=== PATIENT | male | born 1970 | race Caucasian/White ===

== ENCOUNTER → 2018-12-14 | Outpatient (CLI) | payer OTHER | END | disposition home or self-care (01) | LOC: LAB 19:00 → LAB SHORT 19:00 | DX: L08.9 Local infection of the skin and subcutaneous tissue, unspecified (principal) | CPT/HCPCS: 87070; 87077; 87147; 87186; 87205 ==

== ENCOUNTER 2018-12-17 08:00 | Day surgery (SDC) | payer OTHER | END 2018-12-17 23:02 | disposition home or self-care (01) | LOC: WOUND 08:00 | DX: S91.302A Unspecified open wound, left foot, initial encounter (principal); L03.818 Cellulitis of other sites; B95.61 Methicillin susceptible Staphylococcus aureus infection as the cause of diseases classified elsewhere; M79.672 Pain in left foot; L02.416 Cutaneous abscess of left lower limb; I10 Essential (primary) hypertension; F17.200 Nicotine dependence, unspecified, uncomplicated; M10.9 Gout, unspecified | CPT/HCPCS: 87070; 87075; 87077; 87147; 87186; 87205; G0463 ==

== ENCOUNTER 2018-12-23 09:45 | Day surgery (SDC) | payer OTHER | END 2018-12-23 22:46 | disposition home or self-care (01) | LOC: WOUND 09:45 | PROC: 0H9NXZZ Drainage of Left Foot Skin, External Approach (ICD-10-PCS; principal; 2018-12-23) | DX: L97.529 Non-pressure chronic ulcer of other part of left foot with unspecified severity (principal); L03.818 Cellulitis of other sites; M79.672 Pain in left foot; I10 Essential (primary) hypertension; E78.5 Hyperlipidemia, unspecified; M10.9 Gout, unspecified | CPT/HCPCS: 87070; 87075; 87205 ==

== ENCOUNTER 2018-12-30 00:19 | Day surgery (SDC) | payer OTHER | END 2018-12-30 22:44 | disposition home or self-care (01) | LOC: WOUND 00:19 | DX: S91.302A Unspecified open wound, left foot, initial encounter (principal); L03.818 Cellulitis of other sites; M79.672 Pain in left foot; L02.416 Cutaneous abscess of left lower limb; M10.9 Gout, unspecified; I10 Essential (primary) hypertension; E78.5 Hyperlipidemia, unspecified; B95.61 Methicillin susceptible Staphylococcus aureus infection as the cause of diseases classified elsewhere ==

== ENCOUNTER 2021-10-24 15:06 | Emergency (ER) | payer OTHER ==
[~2021-10-24] VITALS: Ht 172.7 cm; Wt 122.5 kg
[2021-10-24] MEDS ORDERED: ONDA4ODT MM (17:27)
[2021-10-24] MEDS ORDERED: Norco 5-325 Ta1 EACH PO (17:27)
[2021-10-25] MEDS ORDERED: ROSUVASTATIN CA20 MG PO (20:11)
[2021-10-25] MEDS ORDERED: ALLO300 PO (20:12)
[2021-10-25] MEDS ORDERED: LISINOPRIL 20 MG (20:12)
[2021-10-25] MEDS ORDERED: FEBUXOSTAT40 MG PO (20:13)
[2021-10-25] MEDS ORDERED: METO50ER PO (20:13)
[2021-10-25] MEDS ORDERED: ONDA4ODT (20:14)
[2021-10-25] MEDS ORDERED: PROBENECID-COL1 EACH PO (20:14)
[2021-10-25] MEDS ORDERED: HYDROCODONE-AC1 EA15 PO (20:14)
[2021-10-25] MEDS ORDERED: PLAVIX75 MG PO (20:14)
[2021-10-25] MEDS ORDERED: LISI20 PO (20:15)
== END 2021-10-24 17:48 | disposition home or self-care (01) ==
LOC: ER 15:06
DX: M10.9 Gout, unspecified (principal)
CPT/HCPCS: 36415; 73610; 96374; 99283-25; A9270; J3010; J7030

== ENCOUNTER → 2021-10-25 | Outpatient (CLI) | payer OTHER ==
[~2021-10-25] MED LIST: ALLO300 PO; FEBUXOSTAT40 MG PO; HYDROCODONE-AC1 EA15 PO; LISI20 PO; LISINOPRIL 20 MG; METO50ER PO; Norco 5-325 Ta1 EACH PO; ONDA4ODT; ONDA4ODT MM; PLAVIX75 MG PO; PROBENECID-COL1 EACH PO; ROSUVASTATIN CA20 MG PO
[2021-10-25 17:39] LABS: BASOPHILS ABSOLUTE AUTO 0.08 K/mm3 (0.00-0.23); BASOPHILS PERCENT AUTO 0 % (0-2); EOSINOPHILS ABSOLUTE AUTO 0.01 K/mm3 (0.00-0.68); EOSINOPHILS PERCENT AUTO 0 % (0-6); Hematocrit 45.4 % (37.0-53.0); Hemoglobin 15.1 g/dL (13.5-17.5); IMMATURE GRAN ABSOLUTE AUTO 0.63 K/mm3 (0.00-0.10); IMMATURE GRAN PERCENT AUTO 2 % (0-1); LYMPHOCYTES ABSOLUTE AUTO 1.75 K/mm3 (0.84-5.20); LYMPHOCYTES PERCENT AUTO 6 % (21-46); MONOCYTES ABSOLUTE AUTO 1.07 K/mm3 (0.16-1.47); MONOCYTES PERCENT AUTO 4 % (4-13); Mean Corpuscular HGB 30.1 pg (26.0-34.0); Mean Corpuscular HGB Conc 33.3 g/dL (31.5-36.5); Mean Corpuscular Volume 90 fL (80-100); Mean Platelet Volume 10.9 fL (9.1-12.4); NEUTROPHILS ABSOLUTE AUTO 23.75 K/mm3 (1.96-9.15); NEUTROPHILS PERCENT AUTO 87 % (41-73); Platelet Count 663 K/mm3 (150-400); RDW Coefficient Variation 14.8 % (11.7-14.2); RDW Standard Deviation 49.1 fL (35.1-46.3); Red Blood Cell Count 5.02 M/mm3 (4.30-5.90); White Blood Cell Count 27.29 K/mm3 (4.00-11.30)
[2021-10-25 17:53] LABS: Alanine Aminotransfer (ALT/SGP 138 U/L (12-78); Albumin, Blood 2.1 g/dL (3.4-5.0); Albumin/Globulin Ratio 0.3 (0.8-1.8); Alk Phos 126 U/L (50-136); Anion Gap 11 mmol/L (6-16); Aspartate Aminotrans (AST/SGOT 44 U/L (12-37); Bilirubin, Direct 0.3 mg/dL (0.0-0.3); Bilirubin, Indirect 0.4 mg/dL (0.1-0.7); Bilirubin, Total 0.7 mg/dL (0.1-1.0); Blood Urea Nitrogen 34 mg/dL (8-24); Bun/Creatinine Ratio 39.3 (12.0-20.0); CO2, Blood 17 mmol/L (21-32); Calcium, Blood 9.2 mg/dL (8.5-10.1); Chloride, Blood 104 mmol/L (98-108); Creatinine, Blood 0.87 mg/dL (0.60-1.20); Globulin, Blood 6.7 g/dL (2.2-4.0); Glomerular Filtration Rate >60 (60-); Glucose, Blood 178 mg/dL (70-99); Phosphorus, Blood 4.4 mg/dL (2.5-4.9); Potassium, Blood 4.9 mmol/L (3.5-5.5); Sodium, Blood 132 mmol/L (136-145); Total Protein, Blood 8.8 g/dL (6.4-8.2)
[2021-10-25 20:51] LABS: Percent Saturation 15.7 % (20.0-50.0)
[2021-10-28 14:07] LABS: G-6-PD, QUANT 403 (127-427); RBC 4.96 x10E6/uL (4.14-5.80)
== END | disposition home or self-care (01) ==
LOC: LAB SHORT 15:55 → LAB 15:55
PROVIDERS: Internal Medicine Nephrology
DX: N18.30 Chronic kidney disease, stage 3 unspecified (principal); D63.1 Anemia in chronic kidney disease; N25.81 Secondary hyperparathyroidism of renal origin; E55.9 Vitamin D deficiency, unspecified; E78.00 Pure hypercholesterolemia, unspecified; R76.9 Abnormal immunological finding in serum, unspecified; R94.5 Abnormal results of liver function studies; G60.9 Hereditary and idiopathic neuropathy, unspecified
CPT/HCPCS: 80053; 82248; 82306; 82607; 82728; 82746; 82955; 83540; 83550; 83970; 84100; 85018; 85025

== ENCOUNTER 2021-12-05 09:51 | Emergency (ER) | payer OTHER ==
[~2021-12-05] VITALS: Ht 180.3 cm; Wt 111.1 kg
[~2021-12-05 09:51] MED LIST changes: +AMLO5 PO; +ARTIFICIAL TEAR15 M2 BOTHEYES; +ATOR40TA PO; +Acetaminophen650 M1 PO; +BENADRYL25 MG PO; +CEFTRIAXONE2 G1 IV; +CLOP75 PO; +COLCRYS0.6 M1 PO; +FAMO20 PO; +FEBU40TA PO; +GENT.3OPSO BOTHEYES; +MELA3 PO; +OXYC5 PO; +PANT20 PO; +PRED20 PO; +PROBIOTIC1 EA13 PO; +RIFA300 PO; +SIME80CH PO; +Vitamin D1000 UNI1 PO; +ZYRTEC10 M2 PO
[2021-12-05] MEDS ORDERED: ALLO300 PO (10:25)
[2021-12-05 10:49] LABS: BASOPHILS ABSOLUTE AUTO 0.05 K/mm3 (0.00-0.23); BASOPHILS PERCENT AUTO 0 % (0-2); EOSINOPHILS ABSOLUTE AUTO 0.09 K/mm3 (0.00-0.68); EOSINOPHILS PERCENT AUTO 1 % (0-6); Hematocrit 34.2 % (37.0-53.0); Hemoglobin 11.1 g/dL (13.5-17.5); IMMATURE GRAN PERCENT AUTO 1 % (0-1); LYMPHOCYTES PERCENT AUTO 14 % (21-46); MONOCYTES ABSOLUTE AUTO 1.09 K/mm3 (0.16-1.47); MONOCYTES PERCENT AUTO 8 % (4-13); Mean Corpuscular HGB 29.6 pg (26.0-34.0); Mean Corpuscular HGB Conc 32.5 g/dL (31.5-36.5); Mean Corpuscular Volume 91 fL (80-100); Mean Platelet Volume 11.1 fL (9.1-12.4); NEUTROPHILS ABSOLUTE AUTO 10.75 K/mm3 (1.96-9.15); NEUTROPHILS PERCENT AUTO 76 % (41-73); Platelet Count 433 K/mm3 (150-400); RDW Coefficient Variation 14.2 % (11.7-14.2); RDW Standard Deviation 46.7 fL (35.1-46.3); Red Blood Cell Count 3.75 M/mm3 (4.30-5.90); White Blood Cell Count 14.08 K/mm3 (4.00-11.30)
[2021-12-05 11:01] LABS: Alanine Aminotransfer (ALT/SGP 70 U/L (12-78); Albumin, Blood 2.7 g/dL (3.4-5.0); Albumin/Globulin Ratio 0.6 (0.8-1.8); Alk Phos 76 U/L (50-136); Anion Gap 10 mmol/L (6-16); Aspartate Aminotrans (AST/SGOT 53 U/L (12-37); Bilirubin, Total 0.2 mg/dL (0.1-1.0); Blood Urea Nitrogen 24 mg/dL (8-24); Bun/Creatinine Ratio 23.3 (12.0-20.0); CO2, Blood 23 mmol/L (21-32); Calcium, Blood 9.1 mg/dL (8.5-10.1); Chloride, Blood 104 mmol/L (98-108); Creatinine, Blood 1.03 mg/dL (0.60-1.20); Globulin, Blood 4.9 g/dL (2.2-4.0); Glomerular Filtration Rate >60 (60-); Glucose, Blood 156 mg/dL (70-99); Potassium, Blood 4.6 mmol/L (3.5-5.5); Sodium, Blood 137 mmol/L (136-145); Total Protein, Blood 7.6 g/dL (6.4-8.2)
== END 2021-12-05 14:45 | disposition home or self-care (01) ==
LOC: ER 09:51
PROVIDERS: Physician Assistant
DX: R04.0 Epistaxis (principal); I10 Essential (primary) hypertension; E78.5 Hyperlipidemia, unspecified; Z79.899 Other long term (current) drug therapy
CPT/HCPCS: 30905; 80053; 85025; 96374-59; 96376-59; 99284-25; A9270; J2405; J7030

== ENCOUNTER 2022-11-29 08:43 | Inpatient (IN) | payer OTHER ==
[~2022-11-29] VITALS: Ht 180.3 cm; Wt 108.4 kg
[~2022-11-29 08:43] MED LIST changes: +METO25ER PO
[2022-11-29 09:35] LABS: White Blood Cell Count 11.11 K/mm3 (4.00-11.30)
[2022-11-29 09:36] LABS: BASOPHILS ABSOLUTE AUTO 0.04 K/mm3 (0.00-0.23); BASOPHILS PERCENT AUTO 0 % (0-2); EOSINOPHILS ABSOLUTE AUTO 0.04 K/mm3 (0.00-0.68); EOSINOPHILS PERCENT AUTO 0 % (0-6); Hematocrit 33.1 % (37.0-53.0); Hemoglobin 9.8 g/dL (13.5-17.5); IMMATURE GRAN ABSOLUTE AUTO 0.06 K/mm3 (0.00-0.10); IMMATURE GRAN PERCENT AUTO 1 % (0-1); LYMPHOCYTES ABSOLUTE AUTO 1.06 K/mm3 (0.84-5.20); LYMPHOCYTES PERCENT AUTO 10 % (21-46); MONOCYTES ABSOLUTE AUTO 1.16 K/mm3 (0.16-1.47); MONOCYTES PERCENT AUTO 10 % (4-13); Mean Corpuscular HGB 24.9 pg (26.0-34.0); Mean Corpuscular HGB Conc 29.6 g/dL (31.5-36.5); Mean Corpuscular Volume 84 fL (80-100); Mean Platelet Volume 11.9 fL (9.1-12.4); NEUTROPHILS ABSOLUTE AUTO 8.75 K/mm3 (1.96-9.15); NEUTROPHILS PERCENT AUTO 79 % (41-73); Platelet Count 392 K/mm3 (150-400); RDW Coefficient Variation 17.6 % (11.7-14.2); RDW Standard Deviation 53.1 fL (35.1-46.3); Red Blood Cell Count 3.94 M/mm3 (4.30-5.90)
[2022-11-29 10:05] LABS: Albumin, Blood 3.3 g/dL (3.4-5.0); Albumin/Globulin Ratio 0.8 (0.8-1.8); Bilirubin, Total 1.8 mg/dL (0.1-1.0); Bun/Creatinine Ratio 24.4 (12.0-20.0); Calcium, Blood 8.4 mg/dL (8.5-10.1); Creatinine, Blood 1.31 mg/dL (0.60-1.20); Globulin, Blood 4.2 g/dL (2.2-4.0); Potassium, Blood 4.3 mmol/L (3.5-5.5); Total Protein, Blood 7.5 g/dL (6.4-8.2)
[2022-11-29 10:16] LABS: Influenza A, PCR NEGATIVE (NEGATIVE); Influenza B, PCR NEGATIVE (NEGATIVE); Resp Syncytial Virus, PCR NEGATIVE (NEGATIVE); SARS-Cov-2 (COVID-19) PCR, MMC NEGATIVE (NEGATIVE)
[2022-11-29] MEDS ORDERED: SPIRONOLACTONE25 MG PO (13:52)
[2022-11-29] MEDS ORDERED: LANSOPRAZOLE30 MG PO (13:54)
[2022-11-30 04:43] LABS: BASOPHILS ABSOLUTE AUTO 0.06 K/mm3 (0.00-0.23); BASOPHILS PERCENT AUTO 0 % (0-2); EOSINOPHILS ABSOLUTE AUTO 0.02 K/mm3 (0.00-0.68); EOSINOPHILS PERCENT AUTO 0 % (0-6); Hematocrit 31.4 % (37.0-53.0); Hemoglobin 9.8 g/dL (13.5-17.5); IMMATURE GRAN PERCENT AUTO 1 % (0-1); LYMPHOCYTES ABSOLUTE AUTO 0.75 K/mm3 (0.84-5.20); LYMPHOCYTES PERCENT AUTO 5 % (21-46); MONOCYTES ABSOLUTE AUTO 1.13 K/mm3 (0.16-1.47); MONOCYTES PERCENT AUTO 8 % (4-13); Mean Corpuscular HGB Conc 31.2 g/dL (31.5-36.5); Mean Corpuscular Volume 80 fL (80-100); Mean Platelet Volume 12.6 fL (9.1-12.4); NEUTROPHILS ABSOLUTE AUTO 12.64 K/mm3 (1.96-9.15); NEUTROPHILS PERCENT AUTO 86 % (41-73); Platelet Count 411 K/mm3 (150-400); RDW Coefficient Variation 17.4 % (11.7-14.2); RDW Standard Deviation 49.6 fL (35.1-46.3); Red Blood Cell Count 3.92 M/mm3 (4.30-5.90)
[2022-11-30 05:06] LABS: Magnesium, Blood 1.8 mg/dL (1.6-2.4); Uric Acid, Blood 2.2 mg/dL (3.5-7.2)
--- NOTE | 2022-11-30 05:17 | NUR ---
End of shift Summary Mr Berry was presented to the ED on 11/29/2022 with increasing SOB x3 days. He was admitted to medical with new onset CHF with BNP 1744, ASt 1940, ALT 1632. Medical history include gout, HTN, HLP and SC 17 years ago. He is AOX4, Full code, able to communicate needs and wants. Vitals this shift BP 120/97, HR 93, Temp 97.6 and Spo2 100% on room air. Uses CPAP QHS brought from home. R-Hand-20g IV is paten and INT. Complains of pain to hips and joints on upper extremities d/t gout. Medicated with oxycodone X2 during the shift. spent the night in room. WBC 14.7
[2022-11-30 05:46] LABS: Albumin, Blood 3.3 g/dL (3.4-5.0); Albumin/Globulin Ratio 0.7 (0.8-1.8); Bilirubin, Total 1.7 mg/dL (0.1-1.0); Bun/Creatinine Ratio 26.7 (12.0-20.0); Calcium, Blood 8.5 mg/dL (8.5-10.1); Creatinine, Blood 1.35 mg/dL (0.60-1.20); Globulin, Blood 4.5 g/dL (2.2-4.0); Potassium, Blood 4.5 mmol/L (3.5-5.5); Total Protein, Blood 7.8 g/dL (6.4-8.2)
--- NOTE | 2022-11-30 19:16 | NUR ---
SHIFT SUMMARY PT IS A&O X4, WITH AT BEDSIDE. PT REPORTS ANXIETY WITH SOB EPISODES. APPLIED 2LPM O2 VIA NC. ECHO DONE, SHOWING EJECTION FRACTION OF 10-15%. DR. FLORES, CARDIOLOGY, CONSULTED. PT USES URINAL INDEPENDENTLY, BUT WILL CALL WHEN HAVING DIZZINESS/SOB. TREATED WITH OXYCODONE FOR PAIN R/T GOUT AND INFLAMMED JOINTS. TROPONIN CRITICAL OF 639. HAVING DIFFICULTY DRAWING BLOOD FOR THE REPEAT TROPONIN. DR. FLORES WITH ORDERS FOR A TRANSFER TO PCU AND POSSIBLE PICC/POWERGLIDE INSERTION. RN TO UPDATE ORDERS
--- NOTE | 2022-11-30 20:32 | NUR ---
SBAR Report Report Given to Linda HONG, Patient AOX4, declines pain, no SOB at this time. at bedside. Both updated on current treatment plan and transfer.
[2022-12-01 05:06] LABS: BASOPHILS ABSOLUTE AUTO 0.02 K/mm3 (0.00-0.23); BASOPHILS PERCENT AUTO 0 % (0-2); EOSINOPHILS ABSOLUTE AUTO 0.02 K/mm3 (0.00-0.68); EOSINOPHILS PERCENT AUTO 0 % (0-6); Hematocrit 29.6 % (37.0-53.0); Hemoglobin 9.3 g/dL (13.5-17.5); IMMATURE GRAN ABSOLUTE AUTO 0.07 K/mm3 (0.00-0.10); IMMATURE GRAN PERCENT AUTO 1 % (0-1); LYMPHOCYTES ABSOLUTE AUTO 0.97 K/mm3 (0.84-5.20); LYMPHOCYTES PERCENT AUTO 8 % (21-46); MONOCYTES ABSOLUTE AUTO 0.93 K/mm3 (0.16-1.47); MONOCYTES PERCENT AUTO 8 % (4-13); Mean Corpuscular HGB 24.9 pg (26.0-34.0); Mean Corpuscular HGB Conc 31.4 g/dL (31.5-36.5); Mean Corpuscular Volume 79 fL (80-100); Mean Platelet Volume 12.6 fL (9.1-12.4); NEUTROPHILS ABSOLUTE AUTO 9.82 K/mm3 (1.96-9.15); NEUTROPHILS PERCENT AUTO 83 % (41-73); Platelet Count 342 K/mm3 (150-400); RDW Coefficient Variation 17.4 % (11.7-14.2); RDW Standard Deviation 49.6 fL (35.1-46.3); Red Blood Cell Count 3.73 M/mm3 (4.30-5.90); White Blood Cell Count 11.83 K/mm3 (4.00-11.30)
[2022-12-01 05:52] LABS: Magnesium, Blood 2.2 mg/dL (1.6-2.4)
[2022-12-01 06:06] LABS: Albumin, Blood 3.1 g/dL (3.4-5.0); Albumin/Globulin Ratio 0.8 (0.8-1.8); Bilirubin, Total 1.3 mg/dL (0.1-1.0); Bun/Creatinine Ratio 29.3 (12.0-20.0); Calcium, Blood 8.2 mg/dL (8.5-10.1); Creatinine, Blood 1.64 mg/dL (0.60-1.20); Globulin, Blood 3.9 g/dL (2.2-4.0); Phosphorus, Blood 4.2 mg/dL (2.5-4.9); Potassium, Blood 3.9 mmol/L (3.5-5.5)
--- NOTE | 2022-12-01 06:58 | NUR ---
SHIFT SUMMARY PT TRANSFERRED FROM MEDICAL FLOOR, REPORT RECEIVED FROM GELY RODRIGUEZ. PT ARRIVED AT 2047. PT ABLE TO TRANSFER SELF TO BED, BUT DID BECOME SOB, DIAPHORETIC AND O2 INCREASED TO 5 L FROM 2 L. PT WAS ABLE TO RECOVER AND O2 TITRATED BACK TO 2 L. VSS; ALTHOUGH SBP IS SOFT 93 - 96. PT FAIRLY ANXIOUS BUT TIME PASSED, PT WAS ABLE TO CALM AND REST. PG IN R UA WAS PLACED; FLUSHS AND DRAWS WELL. VSS REMAINED STABLE THROUGHOUT SHIFT. DR FLORES IN TO SEE PT D/T INCREASING TROPONINS TO DISCUSS TREATMENT PLAN AND PLAN OF CARE. SEE NOTES AND CHART. PLAN FOR ANGIO IN AM. SEE ORDERS AND NOTES FOR THIS. PT A LITTLE ANXIOUS ABOUT PROCEDURE BUT VERBALIZES UNDERSTANDING AND IMPORTANCE. AGREES TO PROCEED WITH ANGIO. RT IN TO SET UP CPAP, PT WORE MOST OF THE NIGHT AND TOLERATED WELL. CALL LIGHT IN REACH AND WILL UPDATE ONCOMING RN.
--- NOTE | 2022-12-01 10:25 | NUR ---
CARE ASSUMPTION THIS RN ASSUMED CARE AT 0700. VSS. TELE SR 90S. PATIENT IS ALERT AND ORIENTED X4. PATIENT REPORTS NO PAIN, CHEST PAIN, OR SHORTNESS OF BREATH. PATIENT LUNG SOUNDS ARE CLEAR. PATIEINT ABD IS MODERATELY DISTENDED ACTIVE AND NONTENDER. PATIENT SKIN IS CLEAN DRY AND INTACT. PATIENT IS INDEPDENT IN ADLS, BUT CALLS BEFORE GETTING OUT OF BED DUE TO LINES AND TELE. SEE SHIFT ASSESSMENT FOR FURTHER DETIALS. IS AT BEDSIDE THIS AM. MD POLANCO AND MD FLORES IN TO SEE PATIENT THIS AM AND DISCUSSED PLAN OF CARE WITH THE PATIENT. PATIENT VERABLIZED UNDERSTANDING. PATIENT LEFT APPROX 0915 FOR ANGIO.
[2022-12-01 10:44] LABS: PO2 Arterial 108 mmHg (80-100); pH Blood Arterial 7.48 (7.35-7.45)
--- NOTE | 2022-12-01 11:33 | NUR ---
BACK FROM ANGIO PATIENT IS BACK FROM ANGIO. VSS. RIGHT RADIAL SITE IS NONTENDER, SOFT, NO HEMATOMA OR SWELLING OR BLEEDING.
--- NOTE | 2022-12-01 16:31 | NUR ---
BRE TRANSFER/SHIFT SUMMARY MD FLORES IN TO SEE PATIENT AFTER ANGIO AND DISCUSSED TRANSFERING UP TO [facility]EL[facility] IN [place]. PATIENT AND PATIENT EDCUATED ON THE REASONS AND AGREED TO THE TRANSFER. MD POLANCO IN TO SEE PATIENT WELL. PATIENT RIGHT RADIAL SITE RECOVERED WITH NO ISSUES. VITAL SIGNS REMAINED STABLE. PATIENT STARTED ON DOBUTAMINE DRIP AND MADE ICU STATUS DUE TO THIS. WHEELING CALLED WITH BED AVAILABLITY. PATIENT LEFT IN NO DISTRESS WITH DRIP INFUSING AT 2MCG/KG/HR AT 1515. THIS RN GAVRE REPORT TO LETI RN AT 1455. PATIENT LEFT VIA [facility]. PATIENT LEFT WITH PACKET AND BELONGINGS. TOOK THE BELONGINGS THE PATIENT DIDN'T WANT TO TAKE WITH HIM.
[2022-12-04 00:08] LABS: HBSAG SCREEN Negative (Negative); HCV AB 0.1 (0.0-0.9); HEP A AB, IGM Negative (Negative); HEP B CORE AB, IGM Negative (Negative)
== END 2022-12-01 15:20 | disposition short-term general hospital (02) | DRG 280 ==
LOC: ER 08:43 → MEDS 12:11 → PCU 11-30 20:46
PROVIDERS: Emergency Medicine; ADMIT Family Medicine
PROC: 4A023N7 Measurement of Cardiac Sampling and Pressure, Left Heart, Percutaneous Approach (ICD-10-PCS; principal; 2022-12-01)
PROC: B211YZZ Fluoroscopy of Multiple Coronary Arteries using Other Contrast (ICD-10-PCS; 2022-12-01)
PROC: B240ZZ3 Ultrasonography of Single Coronary Artery, Intravascular (ICD-10-PCS; 2022-12-01)
DX: I11.0 Hypertensive heart disease with heart failure (principal); I50.43 Acute on chronic combined systolic (congestive) and diastolic (congestive) heart failure; I21.4 Non-ST elevation (NSTEMI) myocardial infarction; I21.A1 Myocardial infarction type 2; F41.9 Anxiety disorder, unspecified; M10.9 Gout, unspecified; E78.5 Hyperlipidemia, unspecified; G47.33 Obstructive sleep apnea (adult) (pediatric); F10.10 Alcohol abuse, uncomplicated; F17.220 Nicotine dependence, chewing tobacco, uncomplicated; I25.10 Atherosclerotic heart disease of native coronary artery without angina pectoris; R74.8 Abnormal levels of other serum enzymes; D50.9 Iron deficiency anemia, unspecified; Z20.822 Contact with and (suspected) exposure to COVID-19; I25.2 Old myocardial infarction; Z88.8 Allergy status to other drugs, medicaments and biological substances; Z79.899 Other long term (current) drug therapy; Z79.02 Long term (current) use of antithrombotics/antiplatelets; Z79.891 Long term (current) use of opiate analgesic; Z79.2 Long term (current) use of antibiotics; Z79.52 Long term (current) use of systemic steroids; Z98.890 Other specified postprocedural states; Z90.49 Acquired absence of other specified parts of digestive tract
CPT/HCPCS: 0241U; 36415; 71045; 71260; 76705; 76937; 80053; 80074; 82330; 82803; 83605; 83735; 83880; 84100; 84484; 84550; 85025; 93005; 93010; 93458; 94660; 94762; 99152; 99153; 99285-25; A9270; C1751; C1769; C1887; C1894; C8929; J1250; J1644; J1650; J1940; J2250; J2543; J2916; J3010; J3475; J7030; J7040; J7050; Q9957; Q9967

== ENCOUNTER 2025-06-14 21:08 | Inpatient (IN) | payer OTHER, MEDICARE ==
[~2025-06-14] VITALS: Ht 177.8 cm; Wt 110.2 kg
[~2025-06-14 21:08] MED LIST changes: +LANSOPRAZOLE30 MG PO; +SPIRONOLACTONE25 MG PO
[2025-06-14] MEDS ORDERED: NS 1,000 ML IV SCH (21:25)
[2025-06-14] MEDS ORDERED: Mag Sulfate 1 GM/D5% 100ML 100 ML IV ONE ×2 (21:25→22:55)
[2025-06-14] MEDS ORDERED: Metoprolol Tartrate 1 MG/ML 5 ML VIAL IV PRN (21:30)
[2025-06-14 21:31] LABS: BASOPHILS ABSOLUTE AUTO 0.05 K/mm3 (0.00-0.23); BASOPHILS PERCENT AUTO 1 % (0-2); EOSINOPHILS ABSOLUTE AUTO 0.06 K/mm3 (0.00-0.68); EOSINOPHILS PERCENT AUTO 1 % (0-6); Hematocrit 49.9 % (37.0-53.0); Hemoglobin 16.1 g/dL (13.5-17.5); IMMATURE GRAN ABSOLUTE AUTO 0.02 K/mm3 (0.00-0.10); IMMATURE GRAN PERCENT AUTO 0 % (0-1); LYMPHOCYTES ABSOLUTE AUTO 1.38 K/mm3 (0.84-5.20); LYMPHOCYTES PERCENT AUTO 16 % (21-46); MONOCYTES ABSOLUTE AUTO 1.03 K/mm3 (0.16-1.47); MONOCYTES PERCENT AUTO 12 % (4-13); Mean Corpuscular HGB Conc 32.3 g/dL (31.5-36.5); Mean Corpuscular Volume 97 fL (80-100); NEUTROPHILS ABSOLUTE AUTO 6.24 K/mm3 (1.96-9.15); NEUTROPHILS PERCENT AUTO 71 % (41-73); NRBC ABSOLUTE 0.00 K/mm3 (0.00-0.02); NRBC Auto 0.0 /100 WBC (0.0-0.2); Platelet Count 276 K/mm3 (150-400); RDW Coefficient Variation 17.8 % (11.7-14.2); RDW Standard Deviation 63.6 fL (35.1-46.3)
[2025-06-14 21:51] LABS: Alanine Aminotransfer (ALT/SGP 39.0 U/L (12-78); Albumin, Blood 3.5 g/dL (3.4-5.0); Albumin/Globulin Ratio 0.8 (0.8-1.8); Anion Gap 9.0 mmol/L (3-11); Aspartate Aminotrans (AST/SGOT 35.0 U/L (12-37); Bilirubin, Total 0.4 mg/dL (0.1-1.0); Blood Urea Nitrogen 14.0 mg/dL (8-24); CO2, Blood 23.0 mmol/L (21-32); Calcium, Blood 8.9 mg/dL (8.5-10.1); Chloride, Blood 107.0 mmol/L (98-108); Creatinine, Blood 1.15 mg/dL (0.60-1.20); Globulin, Blood 4.6 g/dL (2.2-4.0); Glucose, Blood 148.0 mg/dL (70-99); Magnesium, Blood 1.9 mg/dL (1.6-2.4); Potassium, Blood 3.8 mmol/L (3.5-5.5); Sodium, Blood 135.0 mmol/L (136-145); Total Protein, Blood 8.1 g/dL (6.4-8.2)
[2025-06-15] VITALS (11 sets, daily range): BP systolic 112–135; BP diastolic 81–104
[2025-06-15 02:46] LABS: BASOPHILS ABSOLUTE AUTO 0.03 K/mm3 (0.00-0.23); BASOPHILS PERCENT AUTO 1 % (0-2); EOSINOPHILS ABSOLUTE AUTO 0.06 K/mm3 (0.00-0.68); EOSINOPHILS PERCENT AUTO 1 % (0-6); Hematocrit 44.6 % (37.0-53.0); Hemoglobin 14.5 g/dL (13.5-17.5); IMMATURE GRAN ABSOLUTE AUTO 0.01 K/mm3 (0.00-0.10); IMMATURE GRAN PERCENT AUTO 0 % (0-1); LYMPHOCYTES ABSOLUTE AUTO 1.09 K/mm3 (0.84-5.20); LYMPHOCYTES PERCENT AUTO 17 % (21-46); MONOCYTES ABSOLUTE AUTO 0.84 K/mm3 (0.16-1.47); MONOCYTES PERCENT AUTO 13 % (4-13); Mean Corpuscular HGB Conc 32.5 g/dL (31.5-36.5); Mean Corpuscular Volume 97 fL (80-100); NEUTROPHILS ABSOLUTE AUTO 4.24 K/mm3 (1.96-9.15); NEUTROPHILS PERCENT AUTO 68 % (41-73); NRBC ABSOLUTE 0.00 K/mm3 (0.00-0.02); NRBC Auto 0.0 /100 WBC (0.0-0.2); Platelet Count 205 K/mm3 (150-400); RDW Coefficient Variation 17.5 % (11.7-14.2); RDW Standard Deviation 62.7 fL (35.1-46.3)
[2025-06-15] MEDS ORDERED: ELIQUIS5 M2 PO (02:47)
[2025-06-15] MEDS ORDERED: ENTRESTO 97 MG1 EACH PO (02:48)
[2025-06-15] MEDS ORDERED: LEFL20 PO (02:48)
[2025-06-15] MEDS ORDERED: FARXIGA10 MG PO (02:48)
[2025-06-15] MEDS ORDERED: EZET10 PO (02:48)
[2025-06-15] MEDS ORDERED: FURO20 PO (02:49)
[2025-06-15] MEDS ORDERED: PROBIOTIC1 EA13 PO (02:50)
[2025-06-15 03:05] LABS: Alanine Aminotransfer (ALT/SGP 30.0 U/L (12-78); Albumin, Blood 3.0 g/dL (3.4-5.0); Albumin/Globulin Ratio 0.8 (0.8-1.8); Anion Gap 8.0 mmol/L (3-11); Aspartate Aminotrans (AST/SGOT 27.0 U/L (12-37); Bilirubin, Total 0.3 mg/dL (0.1-1.0); Blood Urea Nitrogen 14.0 mg/dL (8-24); CO2, Blood 22.0 mmol/L (21-32); Calcium, Blood 8.3 mg/dL (8.5-10.1); Chloride, Blood 112.0 mmol/L (98-108); Creatinine, Blood 0.96 mg/dL (0.60-1.20); Globulin, Blood 3.9 g/dL (2.2-4.0); Glucose, Blood 85.0 mg/dL (70-99); Magnesium, Blood 2.6 mg/dL (1.6-2.4); Potassium, Blood 3.7 mmol/L (3.5-5.5); Sodium, Blood 138.0 mmol/L (136-145); Total Protein, Blood 6.9 g/dL (6.4-8.2)
[2025-06-15 09:36] LABS: Anti-Xa UFH, PHA Monitoring 0.1 IU/mL; Prothrombin Time Results 11.0 Sec (9.7-11.5)
[2025-06-15] MEDS ORDERED: Heparin Sodium,Porcine/0.5 NS 500 ML IV SCH (09:40)
[2025-06-16 04:28] LABS: BASOPHILS ABSOLUTE AUTO 0.02 K/mm3 (0.00-0.23); BASOPHILS PERCENT AUTO 0 % (0-2); EOSINOPHILS ABSOLUTE AUTO 0.10 K/mm3 (0.00-0.68); EOSINOPHILS PERCENT AUTO 2 % (0-6); Hematocrit 46.1 % (37.0-53.0); Hemoglobin 15.1 g/dL (13.5-17.5); IMMATURE GRAN ABSOLUTE AUTO 0.02 K/mm3 (0.00-0.10); IMMATURE GRAN PERCENT AUTO 0 % (0-1); LYMPHOCYTES ABSOLUTE AUTO 0.85 K/mm3 (0.84-5.20); LYMPHOCYTES PERCENT AUTO 15 % (21-46); MONOCYTES ABSOLUTE AUTO 0.63 K/mm3 (0.16-1.47); MONOCYTES PERCENT AUTO 11 % (4-13); Mean Corpuscular HGB Conc 32.8 g/dL (31.5-36.5); Mean Corpuscular Volume 97 fL (80-100); NEUTROPHILS ABSOLUTE AUTO 4.05 K/mm3 (1.96-9.15); NEUTROPHILS PERCENT AUTO 71 % (41-73); NRBC ABSOLUTE 0.00 K/mm3 (0.00-0.02); NRBC Auto 0.0 /100 WBC (0.0-0.2); Platelet Count 159 K/mm3 (150-400); RDW Coefficient Variation 17.8 % (11.7-14.2); RDW Standard Deviation 63.0 fL (35.1-46.3)
[2025-06-16 04:31] VITALS: BP 106/86
[2025-06-16 04:43] LABS: Anion Gap 9.0 mmol/L (3-11); Blood Urea Nitrogen 10.0 mg/dL (8-24); CO2, Blood 21.0 mmol/L (21-32); Calcium, Blood 8.2 mg/dL (8.5-10.1); Chloride, Blood 111.0 mmol/L (98-108); Creatinine, Blood 0.74 mg/dL (0.60-1.20); Glucose, Blood 76.0 mg/dL (70-99); Potassium, Blood 4.0 mmol/L (3.5-5.5); Sodium, Blood 137.0 mmol/L (136-145)
[2025-06-16 07:24] VITALS: BP 111/76
[2025-06-16] MEDS ORDERED: Misc. Capsule PO SCH ×2 (09:00)
[2025-06-16 11:27] VITALS: BP 117/76
[2025-06-16 15:11] VITALS: BP 121/85
[2025-06-16 16:22] VITALS: BP 121/85
== END 2025-06-16 18:05 | disposition short-term general hospital (02) | DRG 281 ==
LOC: ER 21:08 → PCU 21:09
PROVIDERS: Emergency Medicine; Internal Medicine; ADMIT Student in an Organized Health Care Education/Training Program
DX: I48.92 Unspecified atrial flutter (principal); I50.22 Chronic systolic (congestive) heart failure; I21.A1 Myocardial infarction type 2; I47.20 Ventricular tachycardia, unspecified; I45.10 Unspecified right bundle-branch block; I25.5 Ischemic cardiomyopathy; Z79.01 Long term (current) use of anticoagulants; E78.5 Hyperlipidemia, unspecified; I11.0 Hypertensive heart disease with heart failure; I25.10 Atherosclerotic heart disease of native coronary artery without angina pectoris; Z87.891 Personal history of nicotine dependence; G47.33 Obstructive sleep apnea (adult) (pediatric); I25.2 Old myocardial infarction; M06.9 Rheumatoid arthritis, unspecified; Z88.8 Allergy status to other drugs, medicaments and biological substances; Z79.899 Other long term (current) drug therapy; Z79.02 Long term (current) use of antithrombotics/antiplatelets
CPT/HCPCS: 36415; 71045; 71260; 80048; 80053; 83735; 84484; 85025; 85520; 85610; 85730; 93005; 93010; 94762; 96365-59; 96375; 99285-25; A9270; C8929; G0378; J1160; J3475; J7030; Q9957; Q9967

== ENCOUNTER 2025-09-04 22:30 | Emergency (ER) | payer OTHER, MEDICARE ==
[~2025-09-04] VITALS: Ht 172.7 cm; Wt 74.8 kg
[~2025-09-04 22:30] MED LIST changes: +ELIQUIS5 M2 PO; +ENTRESTO 97 MG1 EACH PO; +EZET10 PO; +FARXIGA10 MG PO; +FURO20 PO; +LEFL20 PO
[2025-09-05 02:17] LABS: BASOPHILS ABSOLUTE AUTO 0.05 K/mm3 (0.00-0.23); BASOPHILS PERCENT AUTO 1 % (0-2); EOSINOPHILS ABSOLUTE AUTO 0.08 K/mm3 (0.00-0.68); EOSINOPHILS PERCENT AUTO 1 % (0-6); Hematocrit 47.5 % (37.0-53.0); Hemoglobin 15.9 g/dL (13.5-17.5); IMMATURE GRAN ABSOLUTE AUTO 0.04 K/mm3 (0.00-0.10); IMMATURE GRAN PERCENT AUTO 0 % (0-1); LYMPHOCYTES ABSOLUTE AUTO 0.90 K/mm3 (0.84-5.20); LYMPHOCYTES PERCENT AUTO 9 % (21-46); MONOCYTES ABSOLUTE AUTO 0.86 K/mm3 (0.16-1.47); MONOCYTES PERCENT AUTO 9 % (4-13); Mean Corpuscular HGB Conc 33.5 g/dL (31.5-36.5); Mean Corpuscular Volume 98 fL (80-100); NEUTROPHILS ABSOLUTE AUTO 7.92 K/mm3 (1.96-9.15); NEUTROPHILS PERCENT AUTO 81 % (41-73); NRBC ABSOLUTE 0.00 K/mm3 (0.00-0.02); NRBC Auto 0.0 /100 WBC (0.0-0.2); Platelet Count 180 K/mm3 (150-400); RDW Coefficient Variation 16.5 % (11.7-14.2); RDW Standard Deviation 59.7 fL (35.1-46.3)
[2025-09-05 02:34] LABS: Alanine Aminotransfer (ALT/SGP 35.0 U/L (12-78); Albumin, Blood 3.7 g/dL (3.4-5.0); Albumin/Globulin Ratio 0.9 (0.8-1.8); Anion Gap 8.0 mmol/L (3-11); Aspartate Aminotrans (AST/SGOT 37.0 U/L (12-37); Bilirubin, Total 0.3 mg/dL (0.1-1.0); Blood Urea Nitrogen 21.0 mg/dL (8-24); CO2, Blood 24.0 mmol/L (21-32); Calcium, Blood 9.0 mg/dL (8.5-10.1); Chloride, Blood 108.0 mmol/L (98-108); Creatinine, Blood 1.08 mg/dL (0.60-1.20); Globulin, Blood 4.1 g/dL (2.2-4.0); Glucose, Blood 87.0 mg/dL (70-99); Potassium, Blood 3.9 mmol/L (3.5-5.5); Sodium, Blood 136.0 mmol/L (136-145); Total Protein, Blood 7.8 g/dL (6.4-8.2)
[2025-09-05 04:15] VITALS: BP 147/99
== END 2025-09-05 04:35 | disposition home or self-care (01) ==
LOC: ER 22:30
PROVIDERS: Physician Assistant
DX: R42 Dizziness and giddiness (principal); I11.0 Hypertensive heart disease with heart failure; I50.22 Chronic systolic (congestive) heart failure; I48.91 Unspecified atrial fibrillation; I25.10 Atherosclerotic heart disease of native coronary artery without angina pectoris; I25.2 Old myocardial infarction; E78.5 Hyperlipidemia, unspecified; Z87.891 Personal history of nicotine dependence; Z88.8 Allergy status to other drugs, medicaments and biological substances; Z79.01 Long term (current) use of anticoagulants; Z79.899 Other long term (current) drug therapy; Z59.89 Other problems related to housing and economic circumstances
CPT/HCPCS: 80053; 84484; 85025; 93005; 93010; 99284-25

== ENCOUNTER 2025-10-06 00:51 | Day surgery (SDC) | payer OTHER, MEDICARE ==
[2025-10-06 15:22] VITALS: BP 125/79
[2025-10-06 16:00] LABS: BASOPHILS ABSOLUTE AUTO 0.08 K/mm3 (0.00-0.23); BASOPHILS PERCENT AUTO 1 % (0-2); EOSINOPHILS ABSOLUTE AUTO 0.19 K/mm3 (0.00-0.68); EOSINOPHILS PERCENT AUTO 2 % (0-6); Hematocrit 43.4 % (37.0-53.0); Hemoglobin 14.3 g/dL (13.5-17.5); IMMATURE GRAN ABSOLUTE AUTO 0.03 K/mm3 (0.00-0.10); IMMATURE GRAN PERCENT AUTO 0 % (0-1); LYMPHOCYTES ABSOLUTE AUTO 0.60 K/mm3 (0.84-5.20); LYMPHOCYTES PERCENT AUTO 6 % (21-46); MONOCYTES ABSOLUTE AUTO 0.62 K/mm3 (0.16-1.47); MONOCYTES PERCENT AUTO 7 % (4-13); Mean Corpuscular HGB Conc 32.9 g/dL (31.5-36.5); Mean Corpuscular Volume 100 fL (80-100); NEUTROPHILS ABSOLUTE AUTO 7.90 K/mm3 (1.96-9.15); NEUTROPHILS PERCENT AUTO 84 % (41-73); NRBC ABSOLUTE 0.00 K/mm3 (0.00-0.02); NRBC Auto 0.0 /100 WBC (0.0-0.2); Platelet Count 210 K/mm3 (150-400); RDW Coefficient Variation 15.7 % (11.7-14.2); RDW Standard Deviation 57.5 fL (35.1-46.3)
[2025-10-06 16:27] LABS: C-REACTIVE PROTEIN, EXT RANGE 1.24 mg/dL (0.000-0.300)
[2025-10-06 16:30] LABS: Alanine Aminotransfer (ALT/SGP 21.0 U/L (12-78); Albumin, Blood 3.3 g/dL (3.4-5.0); Albumin/Globulin Ratio 0.8 (0.8-1.8); Anion Gap 9.0 mmol/L (3-11); Aspartate Aminotrans (AST/SGOT 16.0 U/L (12-37); Bilirubin, Total 0.4 mg/dL (0.1-1.0); Blood Urea Nitrogen 17.0 mg/dL (8-24); CO2, Blood 22.0 mmol/L (21-32); Calcium, Blood 8.8 mg/dL (8.5-10.1); Chloride, Blood 109.0 mmol/L (98-108); Creatinine, Blood 1.15 mg/dL (0.60-1.20); Globulin, Blood 4.2 g/dL (2.2-4.0); Glucose, Blood 101.0 mg/dL (70-99); Potassium, Blood 4.1 mmol/L (3.5-5.5); Sodium, Blood 136.0 mmol/L (136-145); Total Protein, Blood 7.5 g/dL (6.4-8.2)
[2025-10-06] MEDS ORDERED: Amiodarone HCl200 MG PO (17:34)
[2025-10-06] MEDS ORDERED: PRED5 PO (17:35)
== END 2025-10-06 16:57 | disposition home or self-care (01) ==
LOC: ATC 00:51
PROVIDERS: Internal Medicine
DX: M05.79 Rheumatoid arthritis with rheumatoid factor of multiple sites without organ or systems involvement (principal); I11.0 Hypertensive heart disease with heart failure; I50.9 Heart failure, unspecified; I25.10 Atherosclerotic heart disease of native coronary artery without angina pectoris; I25.2 Old myocardial infarction; E78.5 Hyperlipidemia, unspecified; M1A.9XX1 Chronic gout, unspecified, with tophus (tophi); F17.290 Nicotine dependence, other tobacco product, uncomplicated; E66.9 Obesity, unspecified; Z68.34 Body mass index [BMI] 34.0-34.9, adult; Z88.8 Allergy status to other drugs, medicaments and biological substances; Z79.01 Long term (current) use of anticoagulants; Z79.52 Long term (current) use of systemic steroids; Z79.899 Other long term (current) drug therapy; Z90.49 Acquired absence of other specified parts of digestive tract
CPT/HCPCS: 80053; 85025; 86140; 96365; 99211; J3262

== ENCOUNTER 2025-11-03 15:45 | Observation (INO) | payer OTHER, MEDICARE ==
[~2025-11-03] VITALS: Ht 180.3 cm; Wt 110.2 kg
[~2025-11-03 15:45] MED LIST changes: +Amiodarone HCl200 MG PO; +PRED5 PO
[2025-11-03] MEDS ORDERED: Morphine Sulfate 4 MG/1 ML Injection ONE (16:27)
[2025-11-03 16:29] LABS: BASOPHILS ABSOLUTE AUTO 0.08 K/mm3 (0.00-0.23); BASOPHILS PERCENT AUTO 1 % (0-2); EOSINOPHILS ABSOLUTE AUTO 0.04 K/mm3 (0.00-0.68); EOSINOPHILS PERCENT AUTO 0 % (0-6); Hematocrit 47.8 % (37.0-53.0); Hemoglobin 15.8 g/dL (13.5-17.5); IMMATURE GRAN ABSOLUTE AUTO 0.05 K/mm3 (0.00-0.10); IMMATURE GRAN PERCENT AUTO 0 % (0-1); LYMPHOCYTES ABSOLUTE AUTO 0.89 K/mm3 (0.84-5.20); LYMPHOCYTES PERCENT AUTO 7 % (21-46); MONOCYTES ABSOLUTE AUTO 0.78 K/mm3 (0.16-1.47); MONOCYTES PERCENT AUTO 7 % (4-13); Mean Corpuscular HGB Conc 33.1 g/dL (31.5-36.5); Mean Corpuscular Volume 102 fL (80-100); NEUTROPHILS ABSOLUTE AUTO 10.25 K/mm3 (1.96-9.15); NEUTROPHILS PERCENT AUTO 85 % (41-73); NRBC ABSOLUTE 0.00 K/mm3 (0.00-0.02); NRBC Auto 0.0 /100 WBC (0.0-0.2); Platelet Count 156 K/mm3 (150-400); RDW Coefficient Variation 17.5 % (11.7-14.2); RDW Standard Deviation 65.7 fL (35.1-46.3)
[2025-11-03] MEDS ORDERED: Metoprolol Tartrate 1 MG/ML 5 ML VIAL IV ONE (16:35)
[2025-11-03] MEDS ORDERED: Morphine Sulfate 4 MG/1 ML Injection IV ONE (16:35)
[2025-11-03 17:12] LABS: Alanine Aminotransfer (ALT/SGP 46.0 U/L (12-78); Albumin, Blood 4.1 g/dL (3.4-5.0); Albumin/Globulin Ratio 1.1 (0.8-1.8); Anion Gap 7.0 mmol/L (3-11); Aspartate Aminotrans (AST/SGOT 35.0 U/L (12-37); Bilirubin, Total 0.5 mg/dL (0.1-1.0); Blood Urea Nitrogen 14.0 mg/dL (8-24); CO2, Blood 22.0 mmol/L (21-32); Calcium, Blood 8.9 mg/dL (8.5-10.1); Chloride, Blood 111.0 mmol/L (98-108); Creatinine, Blood 1.08 mg/dL (0.60-1.20); Globulin, Blood 3.9 g/dL (2.2-4.0); Glucose, Blood 172.0 mg/dL (70-99); Magnesium, Blood 1.9 mg/dL (1.6-2.4); Potassium, Blood 3.5 mmol/L (3.5-5.5); Sodium, Blood 136.0 mmol/L (136-145); Total Protein, Blood 8.0 g/dL (6.4-8.2)
[2025-11-03] MEDS ORDERED: Amiodarone HCl 150 MG in NS 100 ML IV ONE (17:25)
[2025-11-03] MEDS ORDERED: Amiodarone HCl 450 MG in NS 250 ML IV SCH (17:30)
[2025-11-03] MEDS ORDERED: FLU VACC TS2025-26(6MOS UP)/PF 45 MCG/0.5 ML SYRINGE IM SCH (18:45)
[2025-11-03 20:15] VITALS: BP 153/93
--- NOTE | 2025-11-03 21:33 | NUR ---
ADMISSION REPORT RECEIVED FROM ER NURSE. PER REPORT PATIENT HAS ICD THAT WAS PLACED 06/2025 AND GAVE SHOCKS 3 TIMES D/T RUNS OF VTACH. PATIENT DENIED SYMPTOMS TO ER NURSE WHEN IN VTACH. PATIENT ARRIVES TO PCU 20 AROUND 2014. PATIENT ABLE TO STAND AND PIVOT SELF TO PCU BED. PATIENT ALERT, ORIENTED x4, ON RA. ON TELE, SR 1ST DEG HB, BBB, AND PROLONGED QTC AT .53 PER CLOTH HANDLER. AMIO GTT INFUSING PER ORDERS. ORIENTED TO ROOM AND CALL LIGHT SYSTEM. 2057 - PATIENT WENT INTO VTACH AFTER ATTEMPTING TO CHANGE CLOTHES AND VOID IN URINAL. PATIENT DENIED SYMPTOMS AND DENIED ANY FEELINGS OF SHOCKS. ADMINISTERED ORDERED MEDICATIONS. AMIO GTT CONTINUES TO INFUSE. NO OTHER CHANGES AT THIS TIME.
[2025-11-03 23:18] VITALS: BP 136/96
[2025-11-04] VITALS (7 sets, daily range): BP systolic 124–154; BP diastolic 83–104
[2025-11-04 03:58] LABS: BASOPHILS ABSOLUTE AUTO 0.04 K/mm3 (0.00-0.23); BASOPHILS PERCENT AUTO 1 % (0-2); EOSINOPHILS ABSOLUTE AUTO 0.06 K/mm3 (0.00-0.68); EOSINOPHILS PERCENT AUTO 1 % (0-6); Hematocrit 41.7 % (37.0-53.0); Hemoglobin 14.0 g/dL (13.5-17.5); IMMATURE GRAN ABSOLUTE AUTO 0.02 K/mm3 (0.00-0.10); IMMATURE GRAN PERCENT AUTO 0 % (0-1); LYMPHOCYTES ABSOLUTE AUTO 1.12 K/mm3 (0.84-5.20); LYMPHOCYTES PERCENT AUTO 16 % (21-46); MONOCYTES ABSOLUTE AUTO 0.71 K/mm3 (0.16-1.47); MONOCYTES PERCENT AUTO 10 % (4-13); Mean Corpuscular HGB Conc 33.6 g/dL (31.5-36.5); Mean Corpuscular Volume 102 fL (80-100); NEUTROPHILS ABSOLUTE AUTO 5.21 K/mm3 (1.96-9.15); NEUTROPHILS PERCENT AUTO 73 % (41-73); NRBC ABSOLUTE 0.00 K/mm3 (0.00-0.02); NRBC Auto 0.0 /100 WBC (0.0-0.2); Platelet Count 130 K/mm3 (150-400); RDW Coefficient Variation 17.2 % (11.7-14.2); RDW Standard Deviation 64.8 fL (35.1-46.3)
[2025-11-04 04:20] LABS: Alanine Aminotransfer (ALT/SGP 34.0 U/L (12-78); Albumin, Blood 3.2 g/dL (3.4-5.0); Albumin/Globulin Ratio 1.0 (0.8-1.8); Anion Gap 8.0 mmol/L (3-11); Aspartate Aminotrans (AST/SGOT 26.0 U/L (12-37); Bilirubin, Total 0.5 mg/dL (0.1-1.0); Blood Urea Nitrogen 11.0 mg/dL (8-24); CO2, Blood 22.0 mmol/L (21-32); Calcium, Blood 8.3 mg/dL (8.5-10.1); Chloride, Blood 113.0 mmol/L (98-108); Creatinine, Blood 1.0 mg/dL (0.60-1.20); Globulin, Blood 3.3 g/dL (2.2-4.0); Glucose, Blood 79.0 mg/dL (70-99); Potassium, Blood 3.8 mmol/L (3.5-5.5); Sodium, Blood 139.0 mmol/L (136-145); Total Protein, Blood 6.5 g/dL (6.4-8.2)
--- NOTE | 2025-11-04 06:19 | NUR ---
SHIFT SUMMARY PATIENT ALERT, ORIENTED x4. ABLE TO MAKE NEEDS KNOWN TO STAFF. PERIOD OF ANXIETY DURING THE NIGHT D/T "STRESSFUL DAY", PATIENT REQUESTED ANTIANXIETY MEDICATION. OT ORDER FOR ATIVAN. PATIENT REPORTED RELIEF. BP STABLE. TELE READING SR, 1st DEG HB, BBB PER TECH. NO FURTHER EPISODES OF VTACH. AMIO GTT INFUSING PER EMAR. SEE FLOWSHEET FOR TITRATION TO HALF RATE. PATIENT VOIDING USING THE URINAL INDEPENDENTLY. NO OTHER CHANGES. PATIENT AWAITING ECHO. NO OTHER CHANGES THIS SHIFT, WILL REPORT TO DAY SHIFT RN.
[2025-11-04] MEDS ORDERED: Colchicine 0.6 MG TAB PO SCH (09:00)
--- NOTE | 2025-11-04 12:01 | NUR ---
rounding md fine rounding at 1135. the iv amio was stopped and oral amio start. the plan is to possibly discharge today.
--- NOTE | 2025-11-04 17:15 | NUR ---
shift summary this rn assumed care at 0700. vital sign stables. spo2 >90%. patient uses cpap by himself. patient is independent in the room and in adls. patient is alert and oriented x4. neuro is intact. perrla. patient denies chest pain/pressure, pain, or shorntess of breath. see shift assessment. no acute changes this shift
--- NOTE | 2025-11-04 20:44 | NUR ---
ASSUMPTION OF CARE ASSUMED CARE OF PT AT APPROXIMATELY 1900. PT RESTING COMFORTABLY IN BED. NO C/O CHEST PAIN OR PRESSURE. NO C/O SOB. MEDICATION ADMINISTERED PER EMAR. PT PLEASANT AND COOPERATIVE WITH CARES. PT INDEPENDENT IN ROOM. AOX4. ABLE TO MAKE ALL NEEDS KNOWN. CALL LIGHT WITHIN REACH AND PT ABLE TO CALL FOR ASSISTANCE WHEN NEEDED.
[2025-11-05 04:09] VITALS: BP 128/86
--- NOTE | 2025-11-05 05:41 | NUR ---
SHIFT SUMMARY PT REPORTS SOME BLOOD AFTER URINATING, PT STATED HE DID NOT FLUSH IT SO THIS RN COULD VISUALIZE. THIS RN NOTED 3 DROPS OF BLOOD IN TOILET. PT STATED THE BLOOD DID NOT APPEAR UNTIL AFTER HE URINATED. STATES NO PAIN OR BURNING WHILE URINATING. PT REPORTS THIS HAS HAPPENED PREVIOUSLY WHEN HE PASSED A KIDNEY STONE. PT ALSO STATES THAT AT THE TIME HE PASSED THE KIDNEY STONE HE HAD NO PAIN. MD ACUNA NOTIFIED. NO NEW ORDERS AT THIS TIME, CONTINUE TO MONITOR. PT AOX4. NO REPORTS OF CHEST PAIN OR PRESSURE. NO REPORTS OF SOB. PT INDEPENDENT IN ROOM, ABLE TO MAKE ALL NEEDS KNOWN. CALL LIGHT WITHIN REACH AND PT ABLE TO CALL FOR ASSISTANCE WHEN NEEDED. VSS. BED IN LOWEST AND LOCKED POSITION.
[2025-11-05 07:08] VITALS: BP 131/89
--- NOTE | 2025-11-05 09:34 | NUR ---
AM NOTE: PATIENT ALERT AND ORIENTED X4. IND IN ROOM. ABLE TO TURN SELF IN BED. COMPLAINS OF GENERALIZED SORENESS RELATED TO RA. TYLENOL GIVEN THIS AM WITH GOOD RELIEF. TELE SHOWING SR WITH HR 70'S. DENIES CHEST PAIN/PRESSURE/PALPITATIONS. DENIES DIZZINESS. NO EDEMA NOTED. SCD'S IN PLACE. IV'S SALINE LOCKED. ON ROOM AIR WHILE AWAKE AND HOME CPAP AT [facility]. DENIES SOB. LUNG SOUNDS CLEAR. BOWEL TONES PRESENT. TOLERATING PO DIET. DENIES ABDOMINAL PAIN. COMPLAINS OF URINARY TRACT SYMPTOMS OF BURNING, URGENCY AND A FEW DROPS OF BLOOD AT END OF STREAM. DR. FELIPE NOTIFIED AND ORDERS FOR UA WITH CULTURE. SKIN PALE WITH SCATTERED BRUISING AND HEALED SCARS. CALL LIGHT IN REACH. DENIES NEEDS AT THIS TIME.
[2025-11-05 09:51] LABS: Source, Urine Clean Catch
[2025-11-05 09:53] LABS: Bilirubin, Urine Neg (Neg); Glucose Qualitative, Urine 4+ (Neg); Ketones, Urine 2+ (Neg); Leukocyte Esterase, Urine 1+ (Neg); Protein, Urine 2+ (Neg); Specific Gravity, Urine 1.005 (1.003-1.022); Urobilinogen, Urine NORM (Normal)
--- NOTE | 2025-11-05 10:32 | NUR ---
DR. FELIPE TO BEDSIDE AND THIS RN PRESENT FOR MD ROUNDS. PATIENT AWAKE AND ALERT. DR. FELIPE DISCUSSED PENDING UA RESULTS AND POSSIBILITY OF HAVING A UTI. NO NEW ORDERS FOR THIS RN TO PLACE.
[2025-11-05 10:47] LABS: Color, Urine Yellow (P-Yellow)
[2025-11-05 11:46] VITALS: BP 124/89
[2025-11-05] MEDS ORDERED: CefTRIAXone Sodium 1,000 MG in NS 100 ML IV SCH (12:45)
[2025-11-05] MEDS ORDERED: FURO20 PO (13:13)
[2025-11-05] MEDS ORDERED: Cefpodoxime Pr100 MG PO (13:13)
--- NOTE | 2025-11-05 14:32 | NUR ---
DISCHARGE: NO ACUTE CHANGES. PATIENT REMAINS ALERT AND ORIENTED. IV ABX INFUSED PRIOR TO DISCHARGE. IN TO [employer]ERCIAL HOUSEKEEPER PATIENT. DISCHARGE EDUCATION INCLUDED MEDICATIONS, NEW MEDICATIONS TO COMMERCIAL HOUSEKEEPER AT [facility]. SIGNS AND SYPMTOMS OF WHEN TO RETURN. FOLLOW UP WITH PRIMARY CARE PROVIDER AND TO COMPLETE ANTIBIOTIC PRESCRIPTION. IV'S REMOVED. TELE RETURNED. PATIENT LEFT UNIT WITH ALL PERSONAL BELONGINGS INCLUDING HOME CPAP.
== END 2025-11-05 14:00 | disposition home or self-care (01) ==
LOC: ER 15:45 → PCU 15:46 → ERHOLD 15:46 → PCU 20:06
PROVIDERS: Emergency Medicine; Internal Medicine; ADMIT Family Medicine
DX: I48.92 Unspecified atrial flutter (principal); I48.91 Unspecified atrial fibrillation; I11.0 Hypertensive heart disease with heart failure; I50.22 Chronic systolic (congestive) heart failure; M10.9 Gout, unspecified; I21.A1 Myocardial infarction type 2; E78.5 Hyperlipidemia, unspecified; I25.10 Atherosclerotic heart disease of native coronary artery without angina pectoris; M06.9 Rheumatoid arthritis, unspecified; Z79.01 Long term (current) use of anticoagulants; Z79.899 Other long term (current) drug therapy; Z88.8 Allergy status to other drugs, medicaments and biological substances; Z91.0110 Allergy to milk products, unspecified; Z95.810 Presence of automatic (implantable) cardiac defibrillator
CPT/HCPCS: 36415; 80053; 81001; 83735; 83880; 84484; 85025; 87077; 87086; 87186; 93005; 93010; 94762; 96365; 96366; 96375; 99285-25; A9270; C8929; G0378; J0282; J0696; J2270; J7050; J7512; Q9957

== ENCOUNTER 2025-11-11 02:14 | Day surgery (SDC) | payer OTHER, MEDICARE ==
[~2025-11-11] VITALS: Wt 110.1 kg
[~2025-11-11 02:14] MED LIST changes: +Cefpodoxime Pr100 MG PO
[2025-11-11] MEDS ORDERED: TOCILIZUMAB IV SCH (06:00)
[2025-11-11] MEDS ORDERED: NS IV SCH (06:00)
[2025-11-11 10:02] VITALS: BP 117/72
== END 2025-11-11 11:34 | disposition home or self-care (01) ==
LOC: ATC 02:14
DX: M05.79 Rheumatoid arthritis with rheumatoid factor of multiple sites without organ or systems involvement (principal); I25.10 Atherosclerotic heart disease of native coronary artery without angina pectoris; I25.2 Old myocardial infarction; E78.5 Hyperlipidemia, unspecified; I11.0 Hypertensive heart disease with heart failure; I50.9 Heart failure, unspecified; M1A.9XX1 Chronic gout, unspecified, with tophus (tophi); F17.290 Nicotine dependence, other tobacco product, uncomplicated; E66.9 Obesity, unspecified; Z68.34 Body mass index [BMI] 34.0-34.9, adult; Z95.810 Presence of automatic (implantable) cardiac defibrillator; Z79.01 Long term (current) use of anticoagulants; Z79.52 Long term (current) use of systemic steroids; Z79.899 Other long term (current) drug therapy; Z90.49 Acquired absence of other specified parts of digestive tract; Z88.8 Allergy status to other drugs, medicaments and biological substances
CPT/HCPCS: 96365; 96413; J3262